=== PATIENT | male | born 1985 | race African-American/Black ===

== ENCOUNTER 2019-05-20 16:15 | Emergency (ER) | payer BC ==
[~2019-05-20] VITALS: Ht 167.6 cm; Wt 150.6 kg
--- NOTE | 2019-05-20 16:34 | NUR ---
PT AAOX4. BIBRA C/O BACK PAIN, PLAYED BASKETBALL FOR 1 HR THIS MORNING. PLACED ON MONITOR AND PULSE OX. VSS.
--- NOTE | 2019-05-20 16:51 | NUR ---
XRAY AT BEDSIDE
[2019-05-20] MEDS ORDERED: MORPHINE SULFATE INJ 4 MG/ML DISP.SYRIN ONE (16:52)
[2019-05-20] MEDS ORDERED: ONDANSETRON 4 MG TAB.RAPDIS ONE (16:52)
--- NOTE | 2019-05-20 16:57 | NUR ---
MEDS GIVEN. PT IN BED FLAT DUE TO BACK HURTING.
[2019-05-20] MEDS ORDERED: ONDANSETRON 4 MG TAB.RAPDIS SL ONE (17:00)
[2019-05-20] MEDS ORDERED: MORPHINE SULFATE INJ 2 MG/ML DISP.SYRIN IM ONE (17:00)
[2019-05-20] MEDS ORDERED: HYDROMORPHONE 1 MG/1 ML DISP.SYRIN ONE (18:36)
[2019-05-20] MEDS ORDERED: HYDROMORPHONE INJ 0.5 MG/0.5 ML SYRINGE IM ONE (19:00)
[2019-05-20] MEDS ORDERED: CARISOPRODOL 350 MG TABLET ONE (19:48)
[2019-05-20] MEDS ORDERED: CARISOPRODOL 350 MG TABLET PO ONE (20:00)
--- NOTE | 2019-05-20 20:07 | NUR ---
Patient discharged to home in stable condition. Written and verbal after care instructions given. Patient verbalizes understanding of instruction and RX. Pt wheeled out of ED. Pt's friend will be driving the patient home. VSS. No pain noted, just sore per patient.
[2019-05-20 20:08] VITALS: BP 128/72
== END 2019-05-20 20:12 | disposition home or self-care (01) ==
LOC: ER 16:18
DX: M54.5 Low back pain (principal); E66.01 Morbid (severe) obesity due to excess calories; Z68.43 Body mass index [BMI] 50.0-59.9, adult
CPT/HCPCS: 72110; 96372 ×2; 99284; J1170; J2270; Q0162